=== PATIENT | male | born 2000 | race Two or more races ===

== ENCOUNTER 2019-06-11 11:24 | Emergency (ER) | payer OTHER ==
[~2019-06-11] VITALS: Ht 170.2 cm; Wt 108.9 kg
[2019-06-11 11:24] VITALS: BP 119/78
--- NOTE | 2019-06-11 11:26 | NUR ---
ED Nurse Note: patient brought into ED from home by ambulance RA [id number] c/o abd pain 10/10 right upper quadrant, nonradiating, patient reports leaving AMA from [facility] for gallstone removal. surgery was done at [facility], patient reports "last week or monday." patient is alert awake x3 on a hospital gown.
[2019-06-11] MEDS ORDERED: Morphine Sulfate 4mg/ml Inj (IV USE ONLY) IVP ONE ×2 (11:30→13:30)
[2019-06-11] MEDS ORDERED: Omnipaque-300 100ml vial INJ PRN (11:30)
--- NOTE | 2019-06-11 11:41 | Emergency Room Report ---
History of Present Illness General Chief Complaint: Abdominal Pain Source: Patient, EMS Present Illness HPI Disclaimer: Please note that this report is being documented using DRAGON technology. This can lead to erroneous entry secondary to incorrect interpretation by the dictating instrument. HPI: 18-year-old male with recent cholecystectomy at [facility] presents for evaluation of abdominal pain. He states he had his gallbladder removed 3 or 4 days ago and signed out AMA yesterday. He signed out AMA because he stated "they were not taking care of me." He is complaining of worsening right upper quadrant and right lower quadrant pain. Denies fever or chills. Denies vomiting or diarrhea. Denies chest pain shortness of breath. Denies fevers, chills. Denies dysuria, hematuria. No history of kidney stones. No other history of abdominal surgeries. Denies any drug or alcohol abuse. PMH: Denies PSH: Recent cholecystectomy Allergies: Denies Social Hx: Denies Allergies: Coded Allergies: No Known Allergies (Unverified , 06/11/19) Nursing Documentation-PMH Past Medical History: No History, Except For Review of Systems All Other Systems: negative except mentioned in HPI Physical Exam Vital Signs Date Time Temp Pulse Resp B/P (MAP) Pulse Ox O2 Delivery O2 Flow Rate FiO2 06/11/19 11:20 97.0 70 20 119/78 (92) 97 Room Air General: Awake and alert, crying in pain HEENT: NC/AT. EOMI. Neck: Supple, trachea midline Chest Wall: No tenderness, no deformity Cardiovascular: RRR. S1 and S2 normal. No murmur appreciated Resp: Normal work of breathing. No cough, wheezing or crackles appreciated Abdomen: Abdomen is soft, nondistended, morbidly obese. Tender to palpation particular the right upper quadrant and left lower quadrant epigastrium Skin: Laparoscopic surgical scars over the abdomen and clean dry and intact. No oozing or leaking or signs of infection MSK: Normal tone and bulk. Moving all extremities. No obvious deformity. Neuro: Awake and alert. Mentating appropriately. Medical Decision Making Diagnostic Impression: Primary Impression: Abdominal pain ER Course 18-year-old male with recent cholecystectomy presents for worsening abdominal pain. He left AGAINST MEDICAL ADVICE from [facility] yesterday. Will try to obtain the records. Will repeat abdominal labs and CT scan concern for postsurgical problem such as bowel obstruction, abscess, retained gallstone, pancreatitis to name a few. Will provide IV fluids antiemetics and pain medications Laboratory Tests Test 06/11/19 11:40 06/11/19 15:52 White Blood Count 9.2 K/UL (4.8-10.8) Red Blood Count 5.14 M/UL (4.70-6.10) Hemoglobin 14.9 G/DL (14.2-18.0) Hematocrit 44.7 % (42.0-52.0) Mean Corpuscular Volume 87 FL (80-99) Mean Corpuscular Hemoglobin 29.1 PG (27.0-31.0) Mean Corpuscular Hemoglobin Concent 33.4 G/DL (32.0-36.0) Red Cell Distribution Width 13.8 % (11.6-14.8) Platelet Count 379 K/UL (150-450) Mean Platelet Volume 8.1 FL (6.5-10.1) Neutrophils (%) (Auto) 71.4 % (45.0-75.0) Lymphocytes (%) (Auto) 20.3 % (20.0-45.0) Monocytes (%) (Auto) 6.5 % (1.0-10.0) Eosinophils (%) (Auto) 1.0 % (0.0-3.0) Basophils (%) (Auto) 0.8 % (0.0-2.0) Sodium Level 144 MMOL/L (136-145) Potassium Level 4.2 MMOL/L (3.5-5.1) Chloride Level 106 MMOL/L (98-107) Carbon Dioxide Level 29 MMOL/L (21-32) Anion Gap 9 mmol/L (5-15) Blood Urea Nitrogen 12 mg/dL (7-18) Creatinine 0.9 MG/DL (0.55-1.30) Estimate Glomerular Filtration Rate > 60 mL/min (>60) Glucose Level 96 MG/DL (74-106) Calcium Level 9.6 MG/DL (8.5-10.1) Total Bilirubin 0.4 MG/DL (0.2-1.0) Aspartate Amino Transferase (AST) 26 U/L (15-37) Alanine Aminotransferase (ALT) 86 U/L (12-78) H Alkaline Phosphatase 110 U/L (46-116) Total Protein 8.3 G/DL (6.4-8.2) H Albumin 3.7 G/DL (3.4-5.0) Globulin 4.6 g/dL Albumin/Globulin Ratio 0.8 (1.0-2.7) L Lipase 193 U/L (73-393) Urine Color Pending Urine Appearance Pending Urine pH Pending Urine Specific [place] Pending Urine Protein Pending Urine Glucose (UA) Pending Urine Ketones Pending Urine Blood Pending Urine Nitrite Pending Urine Bilirubin Pending Urine Urobilinogen Pending Urine Leukocyte Esterase Pending CT/MRI/US Diagnostic Results CT/MRI/US Diagnostic Results : Impression IMPRESSION: Postsurgical changes in the ventral epigastric abdominal wall. Please confirm clinically. This may be from recent cholecystectomy. No evidence of intra- abdominal abscess or other acute findings. Tiny left renal cyst Reevaluation Time: 15:00 Last Vital Signs Date Time Temp Pulse Resp B/P (MAP) Pulse Ox O2 Delivery O2 Flow Rate FiO2 06/11/19 11:29 70 20 Room Air 06/11/19 11:24 97.0 119/78 97 Reevaluation Impression Labs unremarkable. CT consistent with postsurgical changes status post cholecystectomy. No other abscess or obstruction visualized. Patient found sleeping comfortably on reevaluation. He will be discharged to follow-up with his surgeon for routine postsurgical care. Can return to the emergency department new or worsening symptoms. Disposition: HOME, SELF-CARE Condition: Stable Rodrigo Diaz MD Jun 11, 2019 11:41
[2019-06-11 12:09] LABS: ANION GAP 9 mmol/L (5-15); BLOOD UREA NITROGEN 12 mg/dL (7-18); CALCIUM 9.6 MG/DL (8.5-10.1); CARBON DIOXIDE 29 MMOL/L (21-32); CHLORIDE 106 MMOL/L (98-107); CREATININE 0.9 MG/DL (0.55-1.30); POTASSIUM 4.2 MMOL/L (3.5-5.1); SODIUM 144 MMOL/L (136-145)
[2019-06-11 12:13] LABS: ALANINE AMINOTRANSFERASE 86 U/L (12-78); ALBUMIN 3.7 G/DL (3.4-5.0); ALBUMIN/GLOBULIN RATIO 0.8 (1.0-2.7); ALKALINE PHOSPHATASE 110 U/L (46-116); ASPARTATE AMINO TRANSFERASE 26 U/L (15-37); BILIRUBIN,TOTAL 0.4 MG/DL (0.2-1.0)
[2019-06-11 13:11] LABS: BASOPHILS % (AUTO) 0.8 % (0.0-2.0); HEMATOCRIT 44.7 % (42.0-52.0); HEMOGLOBIN 14.9 G/DL (14.2-18.0); LYMPHOCYTES % (AUTO) 20.3 % (20.0-45.0); MEAN CORPUSCULAR VOLUME 87 FL (80-99); MONOCYTES % (AUTO) 6.5 % (1.0-10.0); NEUTROPHILS % (AUTO) 71.4 % (45.0-75.0); PLATELET COUNT 379 K/UL (150-450); RED BLOOD COUNT 5.14 M/UL (4.70-6.10); RED CELL DISTRIBUTION WIDTH 13.8 % (11.6-14.8); WHITE BLOOD COUNT 9.2 K/UL (4.8-10.8)
--- NOTE | 2019-06-11 13:32 | NUR ---
ED Nurse Note: patient taken to CT scan
--- NOTE | 2019-06-11 14:53 | Diagnostic Imaging Report ---
INDICATION: Abdominal pain TECHNIQUE: Continuous helical transaxial imaging of the abdomen and pelvis was obtained from the lung bases to the pubic symphysis during intravenous contrast administration. Coronal 2-D reformats were also obtained. Study obtained in a Siemens sensation [address] Automatic Exposure Control was utilized. Total Dose length Product (DLP): 784.[address] Dose Index Volume (CTDIvol): 14 mGy COMPARISON: None FINDINGS: Lungs: There is mild atelectasis at the left lung base. A small hiatal hernia is present. Liver: Unremarkable Gallbladder/biliary system: Gallbladder is absent.. Spleen: Unremarkable Pancreas: Unremarkable Kidneys/Bladder: No hydronephrosis identified. Both kidneys enhance symmetrically. The urinary bladder is unremarkable.. Small cysts noted in the left kidney. Adrenal glands: Unremarkable Aorta/IVC: Unremarkable Bowel: There is no evidence of bowel obstruction. Appendix is normal. Peritoneum: Postsurgical changes are seen in the ventral abdominal wall in the epigastric region with subcutaneous stranding and a small amount of peritoneal free air. Please confirm clinically. There is no abscess identified. There is no free fluid. Bones: Unremarkable IMPRESSION: Postsurgical changes in the ventral epigastric abdominal wall. Please confirm clinically. This may be from recent cholecystectomy. No evidence of intra-abdominal abscess or other acute findings. Tiny left renal cyst The CT scanner at [facility] is accredited by the [employer] and the scans are performed using dose optimization techniques as appropriate to a performed exam including Automatic Exposure control.
[2019-06-11 15:20] VITALS: BP 125/72
[2019-06-11 15:28] VITALS: BP 125/72
--- NOTE | 2019-06-11 15:28 | NUR ---
ER DISCHARGE NOTE: Patient is cleared to be discharged per ERMD DR HERNANDEZ, pt is aox4, on room air, with stable vital signs. pt was given dc and prescription instructions, pt was able to verbalize understanding, pt id band and iv site removed without complications. pt is able to ambulate with steady gait. pt took all belongings.
== END 2019-06-11 15:28 | disposition home or self-care (01) ==
LOC: EDBD 11:24 → EMR 15:13
DX: R10.11 Right upper quadrant pain (principal); R10.31 Right lower quadrant pain; Z90.49 Acquired absence of other specified parts of digestive tract
CPT/HCPCS: 36415; 74177; 80053; 83690; 85025; 96374; 96375; 96376; J2270; J2405; Q9967; Z7502; 99284